=== PATIENT | female | born 2000 | race Two or more races ===

== ENCOUNTER 2023-02-10 07:48 | Emergency (ER) | payer OTHER ==
[~2023-02-10] VITALS: Ht 162.6 cm; Wt 59.0 kg
[2023-02-10 10:18] LABS: HEMATOCRIT 34.3 % (36.0-45.00); HEMOGLOBIN 11.6 g/dL (12.0-15.00); MEAN CELL VOLUME 82.7 fL (80.00-100.00); MEAN CORPUSCULAR HGB CONC 33.9 g/dl (32.0-36.0); PLATELET COUNT 245 K/uL (150-450); RED BLOOD COUNT 4.15 M/uL (4.00-6.00); RED CELL DISTRIBUTION WIDTH 13.8 % (11.5-14.5)
[2023-02-10 10:52] LABS: ANION GAP 9 (10.0-20.0); BLOOD UREA NITROGEN 12 mg/dL (7-18); BUN CREA RATIO 18 (7.0-25.0); CALCIUM 8.7 mg/dL (8.5-10.1); CARBON DIOXIDE 27 mEq/L (21-32); CHLORIDE 102 mmol/L (98-107); CREATININE SERUM 0.67 mg/dL (0.55-1.02); GFR 112.21; GLUCOSE FASTING 98 mg/dL (65-100); OSMOLALITY SERUM 268 MOSM/KG (275-295); POTASSIUM 3.73 mEq/L (3.5-5.1); SODIUM 134 mmol/L (136-145)
[2023-02-10 11:04] LABS: HCG QUANTITATIVE < 1 mUI/mL (1-3)
== END 2023-02-10 15:13 | disposition home or self-care (01) ==
LOC: ER 07:48 → EMR PED 08:00 → ER 08:00 → EMR PED 15:13
PROVIDERS: Pediatrics
DX: B34.9 Viral infection, unspecified (principal); Z20.822 Contact with and (suspected) exposure to COVID-19

== ENCOUNTER 2024-01-19 22:57 | Emergency (ER) | payer OTHER ==
[~2024-01-19] VITALS: Ht 165.1 cm; Wt 59.0 kg
[2024-01-19 23:21] VITALS: BP 100/70; O2SAT 95
[2024-01-20 01:14] LABS: PH,URINE 6.5 (5.0-8.0); URINE APPEARANCE Clear; URINE BILIRRUBIN Negative (NEGATIVE); URINE BLOOD Negative; URINE COLOR Yellow; URINE GLUCOSE Negative (NEGATIVE); URINE KETONE Negative (NEGATIVE); URINE LEUKOCYTE Negative; URINE NITRATE Negative; URINE PROTEIN Negative (NEGATIVE); URINE UROBILINOGEN 0.2 E.U./dl
[2024-01-20 01:17] LABS: URINE BACTERIA 47.7 uL (0.0-1933); URINE WBC 15.8 uL (0.0-23.2)
[2024-01-20 01:19] LABS: URINE EPITHELIAL CELLS 0.3 uL (0.0-38.8)
[2024-01-20] MEDS ORDERED: MONISTAT 315 GM VAG (02:09)
== END 2024-01-20 03:48 ==
LOC: ER 22:59
PROVIDERS: General Practice
DX: B37.31 Acute candidiasis of vulva and vagina (principal)

== ENCOUNTER → 2024-02-20 | Emergency (ER) | payer OTHER ==
[~2024-02-20] VITALS: Ht 165.1 cm; Wt 59.0 kg
[~2024-02-20] MED LIST: CEFTRIAXONE SODIUM 500 MG VIAL IM ONE; DOXYCYCLINE HY100 MG PO; METRONIDAZOLE500 MG PO; MONISTAT 315 GM VAG
[2024-02-20 12:16] LABS: HEMATOCRIT 35.7 % (36.0-45.00); HEMOGLOBIN 12.2 g/dL (12.0-15.00); MEAN CELL VOLUME 84.4 fL (80.00-100.00); MEAN CORPUSCULAR HEMOGLOBIN 28.8 pg (27.00-32.0); MEAN CORPUSCULAR HGB CONC 34.1 g/dl (32.0-36.0); PLATELET COUNT 268 K/uL (150-450); RED BLOOD COUNT 4.23 M/uL (4.00-6.00); RED CELL DISTRIBUTION WIDTH 13.5 % (11.5-14.5)
[2024-02-20 12:58] LABS: CALCIUM 9.4 mg/dL (8.5-10.1); CREATININE SERUM 0.68 mg/dL (0.55-1.02); GFR 109.22; POTASSIUM 4.35 mEq/L (3.5-5.1)
[2024-02-20 13:02] LABS: URINE APPEARANCE Turbid; URINE BILIRRUBIN Small (NEGATIVE); URINE BLOOD Moderate; URINE COLOR Dark Yellow; URINE GLUCOSE Negative (NEGATIVE); URINE LEUKOCYTE Trace; URINE NITRATE Negative
[2024-02-20 13:06] LABS: URINE BACTERIA 550.5 uL (0.0-1933); URINE CAST 1.98 uL (0.0-1.40); URINE EPITHELIAL CELLS 60.7 uL (0.0-38.8); URINE RBC 136.5 uL (0.0-20.8); URINE WBC 99.2 uL (0.0-23.2)
[2024-02-20 13:31] LABS: URINE KETONE 80 (NEGATIVE); URINE PROTEIN 100 (NEGATIVE); URINE YEAST FEW /hpf
== END | disposition home or self-care (01) ==
LOC: ER 10:36 → EDBD 10:36 → ER 10:38 → EDBD 10:38
PROVIDERS: General Practice
DX: N39.0 Urinary tract infection, site not specified (principal); R50.9 Fever, unspecified; J02.9 Acute pharyngitis, unspecified; Z20.822 Contact with and (suspected) exposure to COVID-19